=== PATIENT | female | born 1980 | race Caucasian/White ===

== ENCOUNTER 2016-09-18 20:30 | Emergency (ER) | payer MEDICARE, OTHER ==
[2016-09-18 21:59] LABS: URINE BILIRUBIN NEGATIVE (NEGATIVE); URINE BLOOD TRACE (NEGATIVE); URINE GLUCOSE (UA) NORMAL (NORMAL); URINE KETONE NEGATIVE (NEGATIVE)
[2016-09-18 22:00] LABS: URINE BACTERIA 3+ (NONE SEEN); URINE LEUKOCYTE ESTERASE 1+ (NEGATIVE); URINE NITRATE POSITIVE (NEGATIVE); URINE PROTEIN NEGATIVE (NEGATIVE); URINE RBC 0-5 /[HPF] (0-2); URINE SQUAMOUS EPITHELIAL CELL 0-10 /[HPF] (NONE SEEN); UROBILINOGEN NORMAL mg/dL (<1.0)
[2016-09-18 22:08] LABS: BASO # 0.1 10_X3_uL (0.0-0.1); BASO % 0.6 % (0.1-1.2); EOS # 1.4 10_X3_uL (0.0-0.4); EOS % 13.2 % (0.7-5.8); GRAN # 6.5 10_X3_uL (1.6-6.1); GRAN % 59.6 % (34.0-71.1); HEMATOCRIT 41.2 % (34-45); HEMOGLOBIN 13.9 g/dL (11.2-15.7); LYMPH # 2.3 10_X3_uL (1.2-3.7); LYMPH % 20.9 % (19.3-51.7); MEAN CORPUSCULAR HEMOGLOBIN 31.1 pg (27.0-33.0); MEAN CORPUSCULAR HGB CONC 33.7 g/dL (32.0-36.0); MEAN CORPUSCULAR VOLUME 92.2 fL (79-95); MEAN PLATELET VOLUME 9.7 fl (7.5-11.5); MONO # 0.6 10_X3_uL (0.2-0.9); MONO % 5.7 % (4.7-12.5); PLATELET COUNT 232 x10_3/uL (182-369); RED BLOOD COUNT 4.47 x10_6/uL (3.9-5.2); RED CELL DISTRIBUTION WIDTH 12.7 % (11.7-14.4); WHITE BLOOD COUNT 10.8 x10_3/uL (4.0-10.0)
[2016-09-18 22:17] LABS: ALBUMIN 4.6 gm/dL (3.4-5.0); ALKALINE PHOSPHATASE 81 U/L (50-136); ALT/SGPT 6 U/L (3.5-33.9); AST/SGOT 12 U/L (7.04-26.96); BILIRUBIN,TOTAL 0.35 mg/dL (0.0-1.0); BLOOD UREA NITROGEN 7 mg/dL (7-18); CALCIUM 9.7 mg/dL (8.7-10.7); CARBON DIOXIDE 27 mmol/L (21-32); CREATININE 0.7 mg/dL (0.6-1.3); GLUCOSE,RANDOM 98 mg/dL (70-99); POTASSIUM 4.5 mmol/L (3.5-5.1); SODIUM 140 mmol/L (136-145); TOTAL PROTEIN 7.6 gm/dL (6.4-8.2)
== END 2016-09-19 00:35 | disposition home or self-care (01) ==
LOC: ER 20:30
PROVIDERS: Emergency Medicine
DX: N10 Acute pyelonephritis (principal); R11.10 Vomiting, unspecified; M54.9 Dorsalgia, unspecified; R10.9 Unspecified abdominal pain; F32.9 Major depressive disorder, single episode, unspecified; F41.9 Anxiety disorder, unspecified; Z85.850 Personal history of malignant neoplasm of thyroid; Z90.710 Acquired absence of both cervix and uterus; Z98.890 Other specified postprocedural states; F17.210 Nicotine dependence, cigarettes, uncomplicated; Z79.899 Other long term (current) drug therapy
CPT/HCPCS: 36415; 80053; 80307; 81001; 85025; 87086; 87186; 96365; 96375; 99070; 99283-25; 99284; J8597